=== PATIENT | female | born 1995 | race Hispanic/Latino ===

== ENCOUNTER 2016-06-29 09:39 | Emergency (ER) | payer OTHER ==
[~2016-06-29] VITALS: Ht 154.9 cm; Wt 56.8 kg
[~2016-06-29 09:39] MED LIST: CETI1SOL10 PO
[2016-06-29 09:50] VITALS: BP 123/76; PULSE 62; RESP 14; O2SAT 99
--- NOTE | 2016-06-29 09:56 | ED.REPORT ---
HPI- Female Date of Service June 29, 2016 ED Provider: Xavier Nino DO Pt is a healthy 21 year old female presenting to the ED after being unable to find a tampon that she thinks she inserted 3 days ago. Denies fever, chills, pelvic pain, itching, or any other symptoms at this time. Associated symptoms include normal period cramps. She reports that this weekend she drank EtOH while she was on her menstrual cycle and believes that she inserted a tampon. The next day, the pad that she had slept with was completely dry, and she was unsure if she had removed her tampon or not. She has tried to check herself, and has felt something there, but is not sure if it is the tampon. Nursing Notes Stated Complaint: UNABLE TO LOCATE TAMPON Chief Complaint: Female Abdominal Pain Nursing Notes Reviewed: Yes Allergies: Coded Allergies: No Known Allergies (Verified Allergy, Unknown, 07/10/14) Scheduled Cetirizine HCl (Cetirizine) 1 Mg/1 Ml Solution 10 MG PO AM General Time Seen by MD: 09:55 Chief Complaint Other (Vaginal foreign body) Hx Obtained From: Patient Arrived By: Walk-in Sudden in Onset?: Yes Onset Occurred: 3 days ago Symptom Duration: Since onset Severity: Current: No pain currently Severity: Maximum: No pain Recent Healthcare: No recent doctor visit, No recent hospitalization Similar Sx Previous: No Past Medical History Past Medical History Anxiety Past Surgical History none reported Smoking History Unknown if Ever Smoker Social History Alcohol Use: "Social" Drug Use: Denies drug use Other Social History: Good social support Ambulatory Status Independent Review of Systems Review of Systems Note: Vaginal foreign body Constitutional: Denies: Chills, Fever Female: Denies: Pelvic pain Skin: Denies Itching Complete sys rev & neg: except as marked. Physical Exam Initial Vital Signs Vital Signs (First) Date Time Temp Pulse Resp B/P Pulse Ox O2 Delivery O2 Flow Rate FiO2 06/29/16 09:50 36.4 62 14 123/76 99 Room Air Initial VS: Reviewed General/Constitutional: Well-developed, Well-nourished Head / Eyes: Atraumatic, Normocephalic, PERRL ENT: Mucous membranes moist, Conjunctiva normal, No scleral icterus Respiratory: Breath sounds normal, Clear to auscultation, No respiratory distress Cardiovascular: Regular rate & rhythm, Heart sounds normal, Intact distal pulses Abdomen / GI: Soft, Non-tender, No guarding, No rebound, No distention Extremities: Vascular intact, Neuro intact, No swelling, No tenderness Skin: Warm, Dry, No cyanosis Neurologic: Alert, Oriented, Nonfocal Psychiatric: Mood/affect normal, Behavior normal, Normal thought content Female Genitourinary: Atraumatic, External genitalia NL, No bleeding, No discharge, No cervical motion tend, No foreign body Interpretation & Diagnostics Interpretation & Diagnostics: test neg Lab Results Interpretation Test 06/29/16 10:40 Re-Eval/Medical Decision Med Decision/Clinical Course No evidence of vaginal foreign body. Re-Evaluation/Progress : Time of Eval: 10:11 Patient Status: Condition improved Re-Evaluation/Progress Note: Performed pelvic exam. Discussed plan for discharge. Pt understands and agrees with paln. Counseled Regarding: Diagnosis, Lab results, Need for follow-up, When/why to return to ED Discharge & Departure Impression: Primary Impression: Visit for pelvic exam Disposition: Home Discharge Condition All VS Reviewed: Yes Condition: Improved Additional Instructions: There is no identifiable vaginal foreign body. Follow up with your primary care doctor as needed. Return to the ER as needed for severe pain, high fever, or other concerns that you may have. Referrals: Julieta Gutierrez (PCP) Zach Attestation Portions of this note were transcribed by Marion Garcia. I, Dr. Nino personally performed the history, physical exam and medical decision-making; I reviewed and confirmed the accuracy of the information in the transcribed note. Signed by: Zach Baker, 06/29/2016 at 1025. copies to: Julieta Gutierrez Timothy S DO June 29, 2016 09:56 MARION GARCIA June 29, 2016 10:04
== END 2016-06-29 10:25 | disposition home or self-care (01) ==
LOC: SED 09:39
DX: Z01.419 Encounter for gynecological examination (general) (routine) without abnormal findings (principal); X58.XXXA Exposure to other specified factors, initial encounter; Y93.89 Activity, other specified; Y92.9 Unspecified place or not applicable; Y99.8 Other external cause status